=== PATIENT | female | born 1980 | race Caucasian/White ===

== ENCOUNTER 2016-09-17 18:15 | Emergency (ER) | payer BC ==
--- NOTE | 2016-09-17 18:37 | UCPHY ---
H & P Patient Type: New HPI/ROS: HPI CHIEF COMPLAINT: Shortness of breath, cough, hand numbness tingling HISTORY OF PRESENT ILLNESS: This patient very pleasant 36-year-old female no significant medical history does not take any daily medications does have anxiety, she presents to urgent care with numbness and tingling of her hands, hyperventilation, chest tightness nausea and a burning sensation middle chest that she describes GERD. She states she was sitting down on her bed she became nauseous, so to hyperventilate, tingling of her hands, felt chest tightness. No pressure. No sharp pain, no pleuritic pain, no hemoptysis. Denies recent illness. She does tell me she has anxiety and she is very anxious person does not take any daily medications. Also endorse palpitations earlier. No history of cardiac disease or PE or DVT no family history of cardiac disease, no history of cardiac disease in family or premature cardiac history. Past Medical History: Anxiety Past Surgical History: no recent surgical history Social History: denies daily use of drugs alcohol tobacco products drinks wine occasionally, works from home, dropped her off. Family History: Noncontributory ROS REVIEW OF SYSTEMS: A comprehensive 10 point review of systems is otherwise negative aside from elements mentioned in the history of present illness. Exam Constitutional appears well nontoxic, slightly anxious, triage nursing summary reviewed, vital signs reviewed, awake/alert. Eyes normal conjunctivae and sclera, EOMI, PERRLA. HENT normal inspection, atraumatic, moist mucus membranes, no epistaxis, neck supple/ no meningismus, no raccoon eyes. Respiratory clear to auscultation bilaterally, normal breath sounds, no respiratory distress, no wheezing. Cardiovascular rate normal, regular rhythm, no murmur, no edema, distal pulses normal. Gastrointestinal soft, non-tender, no rebound, no guarding, normal bowel sounds, no distension, no pulsatile mass. Genitourinary no CVA tenderness. Musculoskeletal no midline vertebral tenderness, full range of motion, no calf swelling, no tenderness of extremities, no meningismus, good pulses, neurovascularly intact. Skin pink, warm, & dry, no rash, skin atraumatic. Neurologic awake, alert and oriented x 3, AAOx3, moves all 4 extremities equally, motor intact, sensory intact, CN II-XII intact, normal cerebellar, normal vision, normal speech. Psychiatric normal mood/affect. Heme/Lymph/Immune no lymphadenopathy. Differential Diagnosis: Includes but is not limited to in a particular order acute anxiety, electrolyte disturbance, dehydration, pneumonia, PE, pneumothorax, CHF, doubt acute coronary syndrome Medical Decision Making: plan for this patient IV establishment, blood work, cardiac marker, D-dimer unlikely to be acute coronary syndromes, IV fluids gentle hydration normal saline, 1 mg IV Ativan order for anxiety and re- evaluation. Chest x-ray. Re-evaluation: EKG interpretation by me on record in [facility] system. Impression time of EKG 1841, this is sinus tach 100, otherwise no acute ischemic changes specifically no ST elevation, ST depression or significant T-wave abnormalities. Intervals are appropriate. Unremarkable EKG. 1930: re-examination at this time this patient is resting comfortably no acute distress. Feels much better after 1 mg IV Ativan tingling in her hands resolved chest tightness has resolved no chest pain. No shortness of breath. 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 Blood work is reassuring negative D-dimer negative troponin, chest x-ray reviewed shows nothing acute, EKG nonischemic. Given that she had great improvement after IV Ativan most likely cause of presentation of chest discomfort numbness tingling in her hands, shortness of breath, palpitations in his anxiety. She would like to go home with a very limited supply of Ativan. Which I am agreeable with. She understands return to the urgent care or emergency room if there is any worsening symptoms questions or concerns. - Family History Significant Family History: No pertinent family hx Constitutional: Initial Vital Signs Temperature (C) 36.6 C 09/17/16 19:26 Heart Rate 95 09/17/16 19:26 Respiratory Rate 18 09/17/16 19:26 Blood Pressure 124/88 H 09/17/16 19:26 O2 Sat (%) 97 09/17/16 19:26 O2 Delivery Mode Room Air Allergies/Adverse Reactions: No Known Allergies Allergy (Unverified 09/17/16 19:25) Home Medications: Medication Instructions Recorded LORazepam [Ativan] 1 mg PO DAILY #5 tablet 09/17/16 Medical Decision Making - Diagnostics Imaging: Imaging Impressions Chest X-Ray 09/17/16 18:41 Impression: No acute pulmonary disease. - Data Points Laboratory Results: Laboratory Results 09/17/16 18:50 09/17/16 18:50 09/17/16 09/17/16 09/17/16 18:50 18:50 18:50 WBC RBC Hgb Hct MCV MCH MCHC RDW Plt Count MPV Neut % (Auto) Lymph % (Auto) [place] % (Auto) Eos % (Auto) Baso % (Auto) Nucleat RBC Rel Count Absolute Neuts (auto) Absolute Lymphs (auto) Absolute Monos (auto) Absolute Eos (auto) Absolute Basos (auto) Absolute Nucleated RBC Immature Gran % Immature Gran # PT 13.2 SEC SEC (12.0-15.0) INR 1.03 (0.83-1.16) APTT 30.7 SEC SEC (23.0-38.0) D-Dimer 0.29 ug/mLFEU ug/mLFEU (0.00-0.50) Sodium 140 mEq/L mEq/L (134-144) Potassium 3.4 mEq/L L mEq/L (3.5-5.2) Chloride 100 mEq/L mEq/L (97-110) Carbon Dioxide 23 mEq/l mEq/l (22-31) Anion Gap 17 mEq/L H mEq/L (8-16) BUN 14 mg/dL mg/dL (7-23) Creatinine 0.7 mg/dL mg/dL (0.6-1.0) Estimated GFR > 60 Glucose 105 mg/dL H mg/dL (70-100) Calcium 9.7 mg/dL mg/dL (8.5-10.4) Magnesium 1.8 mg/dL mg/dL (1.6-2.3) Total Bilirubin 0.6 mg/dL mg/dL (0.1-1.4) Conjugated Bilirubin 0.2 mg/dL mg/dL (0.0-0.5) Unconjugated Bilirubin 0.4 mg/dL mg/dL (0.0-1.1) AST 19 IU/L IU/L (14-46) ALT 25 IU/L IU/L (9-52) Alkaline Phosphatase 73 IU/L IU/L (38-126) Troponin I < 0.012 ng/mL ng/mL (0-0.034) NT-Pro-B Natriuret Pep 35 pg/mL pg/mL (0-125) Total Protein 8.8 g/dL H g/dL (6.3-8.2) Albumin 4.7 g/dL g/dL (3.5-5.0) Lipase 140.0 IU/L IU/L (23-300) Beta HCG, Qual NEGATIVE 09/17/16 18:50 WBC 7.56 10^3/uL 10^3/uL (3.80-9.50) RBC 4.59 10^6/uL 10^6/uL (4.18-5.33) Hgb 14.2 g/dL g/dL (12.6-16.3) Hct 41.1 % % (38.0-47.0) MCV 89.5 fL fL (81.5-99.8) MCH 30.9 pg pg (27.9-34.1) MCHC 34.5 g/dL g/dL (32.4-36.7) RDW 13.1 % % (11.5-15.2) Plt Count 275 10^3/uL 10^3/uL (150-400) MPV 10.0 fL fL (8.7-11.7) Neut % (Auto) 60.1 % % (39.3-74.2) Lymph % (Auto) 30.3 % % (15.0-45.0) [place] % (Auto) 7.4 % % (4.5-13.0) Eos % (Auto) 1.3 % % (0.6-7.6) Baso % (Auto) 0.8 % % (0.3-1.7) Nucleat RBC Rel Count 0.0 % % (0.0-0.2) Absolute Neuts (auto) 4.54 10^3/uL 10^3/uL (1.70-6.50) Absolute Lymphs (auto) 2.29 10^3/uL 10^3/uL (1.00-3.00) Absolute Monos (auto) 0.56 10^3/uL 10^3/uL (0.30-0.80) Absolute Eos (auto) 0.10 10^3/uL 10^3/uL (0.03-0.40) Absolute Basos (auto) 0.06 10^3/uL 10^3/uL (0.02-0.10) Absolute Nucleated RBC 0.00 10^3/uL 10^3/uL (0-0.01) Immature Gran % 0.1 % % (0.0-1.1) Immature Gran # 0.01 10^3/uL 10^3/uL (0.00-0.10) PT INR APTT D-Dimer Sodium Potassium Chloride Carbon Dioxide Anion Gap BUN Creatinine Estimated GFR Glucose Calcium Magnesium Total Bilirubin Conjugated Bilirubin Unconjugated Bilirubin AST ALT Alkaline Phosphatase Troponin I NT-Pro-B Natriuret Pep Total Protein Albumin Lipase Beta HCG, Qual Medications Given: Discontinued Medications Sodium Chloride (Ns) 1,000 mls @ 0 mls/hr IV ONCE ONE PRN Reason: Wide Open Stop: 09/17/16 18:41 Last Admin: 09/17/16 19:26 Dose: 1,000 mls Lorazepam (Ativan Injection) 1 mg IVP EDNOW ONE Stop: 09/17/16 18:42 Last Admin: 09/17/16 19:04 Dose: 1 mg Departure - Departure Disposition: Home, Routine, Self-Care Clinical Impression: Anxiety Condition: Good Instructions: Anxiety (ED) Additional Instructions: 1. Drink lots of fluids stay well-hydrated 2. return to the urgent care or emergency room if you have any worsening symptoms questions or concerns. Prescriptions: LORazepam [Ativan] 1 mg PO DAILY #5 tablet - PQRS PQRS Measurement: n/a
[2016-09-17] MEDS ORDERED: NS 1,000 ML IV ONE (18:40)
[2016-09-17] MEDS ORDERED: LORazepam 2 MG/ML INJ IVP ONE (18:41)
--- NOTE | 2016-09-17 18:44 | CPEKG ---
Heart Rate: 100 RR Interval: 600 P-R Interval: 200 QRSD Interval: 76 QT Interval: 348 QTC Interval: 449 P Brandon: 50 QRS Brandon: 55 T Wave Brandon: 30 EKG Severity - OTHERWISE NORMAL ECG - EKG Impression: SINUS TACHYCARDIA Electronically Signed By: Pedro Amador 18-Sep-2016 12:08:30
[2016-09-17 18:55] LABS: % IMMATURE GRANULYOCYTES 0.1 % (0.0-1.1); ABSOLUTE IMMATURE GRANULOCYTES 0.01 10^3/uL (0.00-0.10); ADD DIFF? NO; ADD MORPH? NO; ADD SCAN? NO; ATYPICAL LYMPHOCYTE FLAG 10 (0-99); FRAGMENT RBC FLAG 0 (0-99); HEMATOCRIT 41.1 % (38.0-47.0); HEMOGLOBIN 14.2 g/dL (12.6-16.3); LEFT SHIFT FLG 0 (0-99); LIPEMIA HEMOLYSIS FLAG 90 (0-99); MEAN CELL HEMOGLOBIN 30.9 pg (27.9-34.1); MEAN CELL HEMOGLOBIN CONCENTR. 34.5 g/dL (32.4-36.7); MEAN CELL VOLUME 89.5 fL (81.5-99.8); PLATELET CLUMPS FLAG 0 (0-99); PLATELET COUNT 275 10^3/uL (150-400); RED BLOOD CELL COUNT 4.59 10^6/uL (4.18-5.33); RED CELL DISTRIBUTION WIDTH 13.1 % (11.5-15.2)
[2016-09-17 19:08] LABS: INR 1.03 (0.83-1.16); PROTIME(PATIENT) 13.2 SEC (12.0-15.0)
[2016-09-17 19:09] LABS: APTT 30.7 SEC (23.0-38.0)
[2016-09-17 19:12] LABS: ALANINE AMINOTRANSFERASE 25 IU/L (9-52); ALBUMIN 4.7 g/dL (3.5-5.0); ALKALINE PHOSPHATASE 73 IU/L (38-126); ANION GAP 17 mEq/L (8-16); ASPARTATE AMINOTRANSFERASE 19 IU/L (14-46); BILIRUBIN,TOTAL 0.6 mg/dL (0.1-1.4); BILIRUBIN-CONJUGATED 0.2 mg/dL (0.0-0.5); BILIRUBIN-UNCONJUGATED 0.4 mg/dL (0.0-1.1); CALCIUM 9.7 mg/dL (8.5-10.4); CARBON DIOXIDE 23 mEq/l (22-31); CHLORIDE 100 mEq/L (97-110); CREATININE 0.7 mg/dL (0.6-1.0); GLOMERULAR FILTRATION RATE > 60; GLUCOSE 105 mg/dL (70-100); MAGNESIUM 1.8 mg/dL (1.6-2.3); POTASSIUM 3.4 mEq/L (3.5-5.2); SODIUM 140 mEq/L (134-144); TOTAL PROTEIN 8.8 g/dL (6.3-8.2)
[2016-09-17 19:23] LABS: TROPONIN I < 0.012 ng/mL (0-0.034)
[2016-09-17 19:28] VITALS: TEMP 98
[2016-09-17 20:11] VITALS: BP 122/86; PULSE 78; RESP 14; O2SAT 94
== END 2016-09-17 19:50 | disposition home or self-care (01) ==
LOC: CED 18:15
DX: F41.9 Anxiety disorder, unspecified (principal); R06.02 Shortness of breath; R05 Cough; R20.0 Anesthesia of skin; R07.89 Other chest pain; R00.2 Palpitations
CPT/HCPCS: 71020-PO; 80048-PO; 80076-PO; 83690-PO; 83735-PO; 83880-PO; 84484-PO; 84703-PO; 85025-PO; 85378-PO; 85610-PO; 85730-PO; 93010-PO; 96361-PO; 96374-PO; 99205-PO; G0463-PO; J2060